=== PATIENT | female | born 1990 | race Caucasian/White ===

== ENCOUNTER 2019-06-08 10:38 | Emergency (ER) | payer OTHER ==
--- NOTE | 2019-06-08 11:07 | ED ---
Psychiatric Complaint - HPI Summary HPI Summary: This patient is a 28 year old F presenting to [facility] accompanied by her counselor with a chief complaint of SI with a plan since a few days ago. Per counselor, pt has major depressive disorder and alcohol abuse but has been obstaining from it for 6 months. Patient was brought in by her counselor for concern over suicidal ideation. Patient denies taking any medications at her normal medications, and denies any attempt to hurt herself prior to arrival. FHx of diabetes and anxiety. - History Of Current Complaint Chief Complaint: EDSuicidal Time Seen by Provider: 06/08/19 10:49 Hx Obtained From: Patient, Other: - counselor Onset/Duration: Sudden Onset, Lasting Days - since a few days ago, Still Present Timing: Constant Severity Initially: Moderate Severity Currently: Moderate Aggravating Factor(s): Nothing Alleviating Factor(s): Nothing Has Suicidal: Reports: Thoughts, With A Plan - Allergies/Home Medications Allergies/Adverse Reactions: Allergies Allergy/AdvReac Type Severity Reaction Status Date / Time No Known Allergies Allergy Verified 06/08/19 11:24 Home Medications: Home Medications Escitalopram Oxalate [Lexapro] 20 mg PO DAILY 06/08/19 [History Confirmed ] Wellbutrin TAB* 175 mg PO DAILY 06/08/19 [History Confirmed 06/08/19] PMH/Surg Hx/FS Hx/Imm Hx Previously Healthy: No Sensory History: Denies: Hx Hearing Problem, Hx Auditory Problems EENT History: Denies: Hx Deafness, Hx Auditory Problems Psychiatric History: Reports: Hx Depression - Surgical History Surgical History: None Infectious Disease History: No Infectious Disease History: Denies: Traveled Outside the [place] in Last 30 Days - Family History Known Family History: Positive: Diabetes, Other - anxiety - Social History Alcohol Use: Rare Substance Use Type: Reports: None Smoking Status (MU): Never Smoked Tobacco Review of Systems Negative: Fever Psychological: Other - positive - SI All Other Systems Reviewed And Are Negative: Yes Physical Exam - Summary Physical Exam Summary: Constitutional: Well-developed, Well-nourished, Alert. (-) Distressed Skin: Warm, Dry HENT: Normocephalic; Atraumatic Eyes: Conjunctiva normal Neck: Musculoskeletal ROM normal neck. (-) JVD, (-) Stridor Cardio: Rhythm regular, rate normal, Heart sounds normal; Intact distal pulses; Radial pulses are 2+ and symmetric. (-) Murmur Pulmonary/Chest wall: Effort normal. (-) Respiratory distress, (-) Wheezes, (-) Rales Abd: Soft, (-) tenderness, (-) Distension, (-) Guarding Musculoskeletal: (-) Edema Lymph: (-) Cervical adenopathy Neuro: Alert, Oriented x3 Psych: Anxious, SI Triage Information Reviewed: Yes Vital Signs On Initial Exam: Initial Vitals Temp Pulse Resp BP Pulse Ox 98.6 F 65 18 131/97 100 06/08/19 10:41 06/08/19 10:41 06/08/19 10:41 06/08/19 10:41 06/08/19 10:41 Vital Signs Reviewed: Yes Diagnostics - Vital Signs Vital Signs Temp Pulse Resp BP Pulse Ox 06/08/19 10:41 98.6 F 65 18 131/97 100 - Laboratory Result Diagrams: 06/08/19 11:25 06/08/19 11:25 Lab Statement: Any lab studies that have been ordered have been reviewed, and results considered in the medical decision making process. Course/Dx - Course Course Of Treatment: 28-year-old female with a history of major depressive disorder presents with suicidal ideation with plan to overdose on medications. Plan for mental health evaluation, placed on suicide precautions. - Differential Dx/Clinical Impression Provider Diagnosis: Major depression - Physician Notifications Discussed Care Of Patient With: Pancho Hogue Time Discussed With Above Provider: 11:47 Instructed by Provider To: Other - Dr. Hogue says pt will be admitted. Discharge ED - Sign-Out/Discharge Documenting (check all that apply): Patient Departure - admit Patient Received Moderate/Deep Sedation with Procedure: No - Discharge Plan Condition: Stable Disposition: ADMITTED TO [facility] [Primary Care Provider] - - Billing Disposition and Condition Condition: STABLE Disposition: Admitted to [facility] - Attestation Statements Document Initiated by Scribe: Yes Documenting Scribe: John Wiggins Provider For Whom Scribe is Documenting (Include Credential): Dr. Alesia Merritt MD Scribe Attestation: John Chung, scribed for Dr. Alesia Merritt MD on 06/08/19 at 1244. Scribe Documentation Reviewed: Yes Provider Attestation: The documentation as recorded by the scribe, John Wiggins accurately reflects the service I personally performed and the decisions made by me, Dr. Alesia Merritt MD Status of Scribe Document: Viewed
[2019-06-08 11:36] LABS: ABS Basophils 0.1 10^3/ul (0-0.2); ABS Eosinophils 0.1 10^3/ul (0-0.6); ABS Lymphocytes 1.9 10^3/ul (1.0-4.8); ABS Monocytes 0.3 10^3/ul (0-0.8); ABS Neutrophils 2.8 10^3/ul (1.5-7.7); Eosinophil % 2.2 %; Hematocrit 44 % (35-47); Hemoglobin 14.6 g/dL (12.0-16.0); Lymphocyte % 36.7 %; Mean Corpuscular HGB Conc 33 g/dL (31-36); Mean Corpuscular Hemoglobin 29 pg (27-31); Mean Corpuscular Volume 87 fL (80-97); Mean Platelet Volume 7.9 fL (7.4-10.4); Nucleated Red Blood Cells % 0.1; Platelet Count 286 10^3/uL (150-450); Red Blood Count 5.02 10^6 /uL (3.70-4.87); Red Cell Distribution Width 12 % (10-15); White Blood Count 5.2 10^3/uL (3.5-10.8)
[2019-06-08 11:53] LABS: ALT 26 U/L (7-52); AST 25 U/L (13-39); Albumin 4.2 g/dL (3.2-5.2); Albumin/Globulin Ratio 1.6 (1-3); Alkaline Phosphatase 74 U/L (34-104); Anion Gap 3 mmol/L (2-11); Blood Urea Nitrogen 13 mg/dL (6-24); CO2 Carbon Dioxide 28 mmol/L (22-32); Calcium 9.1 mg/dL (8.6-10.3); Chloride 105 mmol/L (101-111); EGFR African American 87.5 (>60); EGFR Non-African American 72.3 (>60); Globulin 2.7 g/dL (2-4); Glucose 88 mg/dL (70-100); Potassium 4.6 mmol/L (3.5-5.0); Sodium 136 mmol/L (135-145); Total Protein 6.9 g/dL (6.4-8.9)
[2019-06-08 11:59] LABS: HCG Pregnancy < 0.60 mIU/mL
[2019-06-08 12:07] LABS: Acetaminophen < 15 mcg/mL; Alcohol < 10 mg/dL (<10); Salicylate < 2.50 mg/dL (<30)
[2019-06-08 12:22] LABS: TSH (Thyroid Stimulating Horm) 2.58 mcIU/mL (0.34-5.60)
[2019-06-08 14:07] VITALS: BP 128/71
== END 2019-06-08 14:06 | disposition home or self-care (01) ==
LOC: ED 10:38
DX: F32.9 Major depressive disorder, single episode, unspecified (principal); Z79.899 Other long term (current) drug therapy
CPT/HCPCS: 36415; 80053; 80320; 80329; 84443; 84702; 85025; 99285; G0480